=== PATIENT | female | born 1985 | race Caucasian/White ===

== ENCOUNTER → 2024-09-28 18:40 | Outpatient (REF) | payer OTHER, SELFPAY | LOC: WDC 18:40 | PROVIDERS: ATTENDING PHYSICIAN Obstetrics & Gynecology; FAMILY PHYSICIAN Physician Assistant Medical | DX: Z12.31 Encounter for screening mammogram for malignant neoplasm of breast (principal) | CPT/HCPCS: 77063; 77067 ==

== ENCOUNTER → 2024-10-01 09:05 | Outpatient (REF) | payer OTHER, SELFPAY | LOC: WDC 09:05 | PROVIDERS: ATTENDING PHYSICIAN Obstetrics & Gynecology; FAMILY PHYSICIAN Physician Assistant Medical | DX: R92.8 Other abnormal and inconclusive findings on diagnostic imaging of breast (principal) | CPT/HCPCS: 76642 ==

== ENCOUNTER → 2024-11-15 08:43 | Outpatient (REF) | payer OTHER, SELFPAY | LOC: RAD 08:43 | PROVIDERS: ATTENDING PHYSICIAN Student in an Organized Health Care Education/Training Program | DX: E65 Localized adiposity (principal) | CPT/HCPCS: 72052 ==

== ENCOUNTER → 2025-04-07 14:44 | Outpatient (REF) | payer OTHER, SELFPAY | LOC: WDC 14:44 | PROVIDERS: ATTENDING PHYSICIAN Obstetrics & Gynecology; FAMILY PHYSICIAN Student in an Organized Health Care Education/Training Program | DX: R92.8 Other abnormal and inconclusive findings on diagnostic imaging of breast (principal) | CPT/HCPCS: 76642 ==